=== PATIENT | female | born 1980 ===

== ENCOUNTER 2017-01-08 14:00 | Inpatient (IN) | payer OTHER ==
[~2017-01-08] VITALS: Ht 165.1 cm; Wt 118.8 kg
[2017-02-17] VITALS (32 sets, daily range): BP systolic 92–163; BP diastolic 56–89; PULSE 75–104; TEMP 97.5–99
[2017-02-17] MEDS ORDERED: LEXAPRO 10MG10 MG PO (07:16)
[2017-02-17] MEDS ORDERED: WELLBUTRIN XL300 M1 PO (07:17)
[2017-02-17] MEDS ORDERED: PRILOSEC 20MG20 MG PO (07:17)
[2017-02-17] MEDS ORDERED: COLACE 100100 MG/CAP PO (07:18)
[2017-02-17] MEDS ORDERED: [UNRECOGNIZED DRUG - CODE] SQ (07:19)
[2017-02-17] MEDS ORDERED: PRENATAL MVI PO (07:20)
[2017-02-17 07:26] LABS: BASO % 0.4 % (0.0-2.0); EOS # 0.1 (0.0-0.7); EOS % 0.7 % (0-4.0); GRAN % 66.2 % (42.2-75.2); LYMPH # 2.4 (1.2-3.4); MEAN CELL VOLUME 78 fl (80.0-100.0); MEAN CORPUSCULAR HGB CONC 32 g/dl (33.0-37.0); MEAN PLATELET VOLUME 10.4 fl (7.4-10.4); MONO # 0.5 (0.1-0.6); MONO % 5.3 % (1.7-9.3); PLATELET COUNT 329 K/mm3 (130-400); RED BLOOD COUNT 3.93 M/mm3 (4.10-5.30); REDCELL DISTRIBUTION WIDTH-CV 13.4 % (11.5-14.5)
[2017-02-17 07:34] LABS: HEMATOCRIT 30.8 % (37.0-47.0); HEMOGLOBIN 9.9 g/dl (12.5-16.0); MEAN CORPUSCULAR HEMOGLOBIN 25 pg (27.0-31.0)
[2017-02-17 08:32] LABS: INR 1.1 (0.8-3.0); PROTHROMBIN TIME 12.2 SECONDS (9.7-12.8)
[2017-02-17 08:35] LABS: PARTIAL THROMBOPLASTIN TIME 34.5 SECONDS (26.0-37.0)
[2017-02-18 04:45] VITALS: BP 142/85; PULSE 69; TEMP 97.2
[2017-02-18 08:45] VITALS: BP 130/76; PULSE 75; TEMP 98.2
[2017-02-18] MEDS ORDERED: IBU800 M1 PO (08:59)
[2017-02-18] MEDS ORDERED: Patient's Own Medica SQ (08:59)
[2017-02-18 17:15] VITALS: BP 127/78; PULSE 76; TEMP 98.1
[2017-02-18 19:30] VITALS: BP 136/84; PULSE 77; TEMP 98
[2017-02-19 08:55] VITALS: BP 138/78; PULSE 82; TEMP 98.3
== END 2017-02-19 12:00 | disposition home or self-care (01) | DRG 775 ==
LOC: LDR 02-17 06:42 → OB 02-17 06:42 → LDR 02-17 10:52 → OB 02-17 15:30 → EDSTATUS 02-24 10:12 → LDRO 02-24 13:59
PROVIDERS: Obstetrics & Gynecology
PROC: 10D07Z6 Extraction of Products of Conception, Vacuum, Via Natural or Artificial Opening (ICD-10-PCS; principal; 2017-02-17)
PROC: 0KQM0ZZ Repair Perineum Muscle, Open Approach (ICD-10-PCS; 2017-02-17)
PROC: 3E033VJ Introduction of Other Hormone into Peripheral Vein, Percutaneous Approach (ICD-10-PCS; 2017-02-17)
DX: O36.0930 Maternal care for other rhesus isoimmunization, third trimester, not applicable or unspecified (principal); O76 Abnormality in fetal heart rate and rhythm complicating labor and delivery; O69.1XX0 Labor and delivery complicated by cord around neck, with compression, not applicable or unspecified; O70.1 Second degree perineal laceration during delivery; Z3A.39 39 weeks gestation of pregnancy; Z37.0 Single live birth
CPT/HCPCS: J2590; J7120

== ENCOUNTER → 2020-12-15 | Outpatient (CLI) | payer BC ==
[~2020-12-15] MED LIST: COLACE 100100 MG/CAP PO; IBU800 M1 PO; LEXAPRO 10MG10 MG PO; PRENATAL MVI PO; PRILOSEC 20MG20 MG PO; Patient's Own Medica SQ; WELLBUTRIN XL300 M1 PO; [UNRECOGNIZED DRUG - CODE] SQ
== END ==
LOC: MC.RAD 15:59
DX: Z12.31 Encounter for screening mammogram for malignant neoplasm of breast (principal)